=== PATIENT | male | born 1940 | race African-American/Black ===

== ENCOUNTER 2018-08-31 16:42 | Inpatient (IN) | payer OTHER ==
[2018-08-31] VITALS (13 sets, daily range): BP systolic 89–115; BP diastolic 37–53
[~2018-08-31] VITALS: Ht 172.7 cm; Wt 94.6 kg
--- NOTE | ~2018-08-31 | EKG ---
[address] [address] ELECTROCARDIOGRAM REPORT Name: SOLOMON MCKNIGHTKIM Burrell Room #: 236-P ADM IN M.R.#: [id number] Admission: 08/31/18 Attend Phys: Markus Merchant MD Discharge: Date of : 42 Report #: [id number] THIS REPORT FOR: //name// [facility] ED Test Date: 2018-08-31 Test Time: 18:52:57 Pat Name: LISBETH MCKNIGHT Department: Room: [facility] Gender: M Senior Communications Engineer: EMILY : 1940 Requested By: Ivett Macias Order Number: [id number] MD: Aidan Srivastava Measurements Intervals [place] Rate: 100 P: 0 RI: 142 QRS: 73 QRSD: 89 T: 146 QT: 388 QTc: 501 Interpretive Statements Atrial fibrillation Borderline low voltage, extremity leads Nonspecific repol abnormality, diffuse leads No previous ECG available for comparison Electronically Signed On 09-01-2018 10:27:34 REGIONAL SALES TRAINER by Aidan Srivastava [email or web address] <ELECTRONICALLY SIGNED> By: Aidan Srivastava MD 09/01/18 1027 185 [id number] MD MAURICIO Grimaldo
--- NOTE | ~2018-08-31 | P ---
[facility] [place] [address] PROCEDURE REPORT Name: JUAN LUISLISBETH L Room #: 216-P [facility] IN M.R.#: [id number] Admission: 08/31/18 Attend Phys: Peirre Pitts Discharge: Date of : 41 Report #: [id number] THIS REPORT FOR: //name// CC: Pierre Pitts Physician staff Wmpasquale Tishaalexa DATE OF SERVICE: 09/03/2018 PREPROCEDURE DIAGNOSES: Hematoma and necrotic ulceration, left leg. POSTPROCEDURE DIAGNOSES: Hematoma and necrotic ulceration, left leg. PROCEDURE PERFORMED: Surgical full thickness debridement of the ulcerations of the left lower extremity. DESCRIPTION OF PROCEDURE: After appropriate verbal consent obtained from the patient's who was at the bedside with me, the left leg was prepped and draped in the usual sterile manner. Sterile tissue forceps and #10 bladed scalpel were utilized and debridement of necrotic tissue and subcutaneous tissue and skin was debrided from the left lower extremity. The preprocedure measurements were 20 x 7 x 0.1 cm. Postprocedure measurements are 21 x 7 x 0.8 cm. Debridement was carried down through the subcutaneous tissue. No deep structures such as tendon, bone or muscle were debrided. The bleeding was controlled easily with direct pressure. ESTIMATED BLOOD LOSS: Approximately 5 mL. PROCEDURAL PAIN: 2 on a scale of 1-10. POSTPROCEDURAL PAIN: None. COMPLICATIONS: None. The wound was then dressed with Xeroform gauze, ABDs, Kerlix and Hans wrap. The patient tolerated procedure with no complications. <ELECTRONICALLY SIGNED> By: Jim Velasco MD 09/04/18 2109 1752 191 Jim Velasco MD /nt
--- NOTE | ~2018-08-31 | HC ---
[address] [address] CONSULTATION Name: JUAN LUISLISBETH L Room #: 236-P [facility] IN ..#: [id number] Admission: 08/31/18 Attend Phys: Pierre Pitts Discharge: 09/09/18 Date of : 41 Report #: [id number] THIS REPORT FOR: //name// CC: Pierre Gacria MD Physician staff Jimmie Rain DATE OF SERVICE: 09/09/2018 REQUESTING PHYSICIAN: Dr. Garcia. CHIEF COMPLAINT: Multiorgan failure. HISTORY OF PRESENT ILLNESS: The patient is a 78-year-old male, who initially presented on 08/31/2018 from [facility]. He had hypoglycemia at that time. The patient's spouse reported that he had had worsening pain of his left lower extremity. He had had hypoglycemia as well. He had had a previous hematoma, incision and drainage over at [facility] prior to being at [facility]. The patient was admitted and found to have apparent hepatitis on his initial lab work. Additionally, he had development of severe sepsis, unknown origin, possibly cholangitis, subsequently we have not found anything on his MRCP. Additionally, he had been investigated for his left lower extremity wound without apparent origin for that being the origin of infection. He has been continued on antibiotics since that time. Unfortunately, on Sunday, he had a code situation and received resuscitation. Since that time, he has had worsening mental status and severe changes to multiple medical problems including the development of hyperkalemia, hyponatremia, inability to have dialysis for at least a day and inability to tolerate dialysis and requirement of pressors as well as ventilation. The patient has, prior to this, being able to drive himself to dialysis, was very functional. Again, there were concerns for multiple medical problems involved in his care at this time. PAST MEDICAL HISTORY: End-stage renal disease, on chronic dialysis; fatty liver disease; numerous renal masses on CT exam as well as pelvic masses, bladder wall thickening, dementia. He additionally has a right IJ thrombus, left lower extremity wound and history of cardiac arrest. MEDICATIONS: Aspirin, albuterol, Procrit, fentanyl, hydrocortisone. PAST SURGICAL HISTORY: He is status post renal transplant. SOCIAL HISTORY: His spouse, Godwin Mcknight, was present at my interview today as well as a sister. ALLERGIES: IODINE. [facility] [address] [place] [address] CONSULTATION Name: LISBETH MCKNIGHT Room #: 236-P [facility] IN M.R.#: [id number] Admission: 08/31/18 Attend Phys: Pierre Pitts Discharge: 09/09/18 Date of : 41 Report #: [id number] CODE STATUS: Currently considered DNR, confirmed this morning by Dr. Posada. FAMILY HISTORY: Noncontributory. REVIEW OF SYSTEMS: Unobtainable due to present medical condition. PHYSICAL EXAMINATION: VITAL SIGNS: Temperature 34.8, pulse 76, respirations are actually 15 on my exam, blood pressure 91/30 although has been much lower over the course of the day, 95% on ventilation. GENERAL: He is not alert. He is not able to follow commands, has inability to respond at this current time. HEENT: Pupils appeared to be at the very least sluggish if not fixed bilaterally. Again, he had no scleral icterus and no conjunctival injection at this time, although he did apparently on admission. CARDIOVASCULAR: Regular rate and rhythm without murmur. LUNGS: Mechanical ventilatory sounds present. ABDOMEN: Did not grimace to palpation. Diminished bowel sounds noted. LABORATORY DATA: Again, potassium 6.9, sodium 129, creatinine 4.2, AST 1277, ALT 704, albumin 1.5. ASSESSMENT AND PLAN: 1. Status post cardiac arrest. Discussed extensively with regard to his overall poor condition. Discussed the major medical problems including his acute hepatitis including also his acute delirium and they are conducting EEG again today, apparently had one over the weekend with slowed brain wave activity consistent with encephalopathy. The patient has had worsening of his overall delirium. In addition, he has inability to maintain pressure support at this time and is requiring significant pressors to maintain his pressure as well as requiring a Carolyn Hugger for temperature management. Unfortunately, the patient appears to have a very poor prognosis based on overall medical findings today. I did try to explain this to spouse and family members as best as I could. Spent approximately 1 hour 30 minutes on discussing advanced care planning. I did discuss also code status as well. There was apparently some further discussion was to be had with regards to this, but no change to code status is made at this time. I do believe it is appropriate for the patient to have a DNR, considering the additional medical conditions and his recent code. I did discuss the statistics and poor overall likelihood of benefit as well as increased probability that this would cause harm if you were to have this. Discussed the options for palliative care including comfort options including the removal of dialysis and even the possibility of a palliative extubation in the future. Discussed these all in the context of his present medical condition. 2. End-stage renal disease. Discussed in the context as above the possibility [facility] [address] [place] [address] CONSULTATION Name: LISBETH MCKNIGHT Room #: 236-P DIS IN ..#: [id number] Admission: 08/31/18 Attend Phys: Pierre Pitts Discharge: 09/09/18 Date of : 41 Report #: [id number] of stopping dialysis given the potential that he will continue to be intolerant of that at this point in time. 3. Septic shock. Again, overall the patient has inability to regain his pressure support and requiring significant pressors for support. Discussed that this may have led to significant organ damage and multiorgan failure. Discussed what that may entail and the distinct possibilities of recovery is not going to be likely. 4. Acute hepatitis, again unknown origin, followed by GI at this point, may be overlying origin of septic shock, again overall contributing to his current medical condition. I discussed this all with the family today. We will attempt to follow up further, although it does not ____. By: 2301 0915 Sanju Dowd DO /nt
--- NOTE | ~2018-08-31 | EEG ---
[facility] [place] [address] ELECTROENCEPHALOGRAM Name: LISBETH MCKNIGHT Room #: 236-P [facility] IN .R.#: [id number] Admission: 08/31/18 Attend Phys: Pierre Gould Discharge: Date of : 41 Report #: [id number] THIS REPORT FOR: //name// CC: Pierre Pitts MD Physician staff Jimmie Rain HISTORY: The patient is a 78-year-old male with status post code. An EEG is requested for further evaluation. DESCRIPTION: The awake record consists of symmetric kpi-ea-nwoatjqo amplitude poorly formed posterior dominant rhythm 6 Hz. The record demonstrates bilaterally symmetrical moderate amplitude 4-4.5 Hz activity. No focal abnormalities or epileptiform discharges are noted. IMPRESSION: This is an abnormal adult record consistent with moderate diffuse cerebral dysfunction. This may be secondary to encephalopathy and may also be seen with medication effect. No subclinical seizures were noted. <ELECTRONICALLY SIGNED> By: Afsaneh Rodriguez DO 09/07/18 1552 1310 1319 Afsaneh Rodriguez DO /nt
--- NOTE | ~2018-08-31 | EKG ---
[address] [address] ELECTROCARDIOGRAM REPORT Name: LISBETH MCKNIGHT Room #: 236-P ADM IN M.R.#: [id number] Admission: 08/31/18 Attend Phys: Pierre Pitts Discharge: Date of : 41 Report #: [id number] THIS REPORT FOR: //name// [facility] Test Date: 2018-09-06 Test Time: 18:34:22 Pat Name: LISBETH MCKNIGHT Department: Room: 236 Gender: M Bi Architect: Messi MILLER : 1940 Requested By: William Garcia Order Number: [id number] MD: Ervin Kennedy Measurements Intervals [place] Rate: 133 P: CT: QRS: 56 QRSD: 90 T: 174 QT: 280 QTc: 417 Interpretive Statements Atrial fibrillation Ventricular premature complex Low voltage, extremity leads Repolarization abnormality, prob rate related Compared to ECG 08/31/2018 18:52:57 Ventricular premature complex(es) now present Electronically Signed On 09-08-2018 20:26:38 DRIVE IN THEATER ATTENDANT by Ervin Kennedy [email or web address] <ELECTRONICALLY SIGNED> By: Ervin Kennedy MD 09/08/182025 33 33 Ervin Kennedy MD /EPI
--- NOTE | ~2018-08-31 | HC ---
[facility] [address] [place] [address] CONSULTATION Name: JUAN LUISLISBETH L Room #: 236-P [facility] IN ..#: [id number] Admission: 08/31/18 Attend Phys: Pierre Pitts Discharge: Date of : 41 Report #: [id number] THIS REPORT FOR: //name// CC: Pierre Pitts Physician staff Jimmie Rain DATE OF SERVICE: 09/02/2018 CHIEF COMPLAINT: Chronic ulcerations/hematoma left lower extremity. HISTORY OF PRESENT ILLNESS: The patient is a 78-year-old male patient who was admitted here from [facility]. He has had a recent hospitalization at [facility] and was found to have a large hematoma to his left leg. He underwent operative debridement by Dr. Chepe Gale on 07/26/2018. At that time, post-debridement measurements were 52 x 30 cm. He is admitted here with acute mental status changes. He initially had a wound VAC and has been undergoing local care at [facility]. He is unable to provide any information about himself at this time, is quite confused and disoriented. He does complain of some pain in that area. PAST MEDICAL HISTORY: Positive for history of end-stage renal disease, requiring hemodialysis. Dialysis through his center reports he has been undergoing dialysis for the last 35 years. He has a history of a renal transplant. He has had debridement of the left lower extremity hematoma. SOCIAL HISTORY: Unknown. FAMILY HISTORY: Unknown. MEDICATIONS: Include hydrocodone, Nephrocaps, prednisone, Flomax, Zetia, Crestor, Atrovent, Lanoxin, and senna. ALLERGIES: IODINE. PHYSICAL EXAMINATION: VITAL SIGNS: At this time include temperature 36.1, pulse 95, respiratory rate of 36, blood pressure 116/53. GENERAL: This is a chronically ill-appearing male patient who appears to be in mild discomfort. HEENT: Head normocephalic. Nose and throat are clear. NECK: Supple. HEART: Irregular without murmur. LUNGS: Coarse. ABDOMEN: Soft and nontender. EXTREMITIES: Lower extremities demonstrate nonpalpable distal pulses. He has [facility] [address] [place] [address] CONSULTATION Name: JUAN LUISLISBETH L Room #: 236-P [facility] IN ..#: [id number] Admission: 08/31/18 Attend Phys: Pierre Pitts Discharge: Date of : 41 Report #: [id number] large ulceration on the anterior and lateral aspects of his left lower extremity. There is 2-3+ edema. There is some granulation tissue, moderate amount of either dried hematoma or eschar. The area is tender. There is a little bit of bleeding. It is not overtly infected at this time. NEUROLOGIC: The patient is alert. He does have a symmetrical motor exam. He is disoriented, not able to provide any information about himself. LABORATORY DATA: At this time includes sodium 143, potassium is 3.8, CO2 of 29, BUN 10, creatinine 3.1, glucose 185. SGOT is 1437. Total bilirubin 7.2, alkaline phosphatase is 467, SGPT is 441. ProBNP is 25,280. White blood cell count is 14.5 with hemoglobin of 8.5. Albumin is low at 2.1. Lactic acid is 1.8. Troponin I is 2.6. CLINICAL IMPRESSION: 1. Surgical wound following incision and drainage and evacuation of hematoma of the left lower extremity. Etiology is unknown. 2. End-stage renal disease, requiring hemodialysis. 3. Elevated liver function tests. A hepatobiliary scan is pending as is MRCP. Surgery has been consulted. 4. Peripheral arterial disease by clinical exam. 5. Status post renal transplant. 6. History of coronary artery disease. RECOMMENDATIONS: At this point in time, we will recommend arterial Dopplers to evaluate the patient's vascular status. We will also recommend topical Silvadene and Xeroform gauze to the lower extremities. He may require additional debridement, although I do not think that it would be prudent to proceed with a bedside debridement at this juncture. We will continue to follow closely. He will likely need turning and repositioning in bed, nutritional support and PRAFO boots for pressure prophylaxis of the lower extremities. I do appreciate being asked to see him in consultation. <ELECTRONICALLY SIGNED> By: Jim Velasco MD 09/03/18 1300 [id number] Jim Velasco MD /nt
--- NOTE | ~2018-08-31 | HC ---
[facility] [address] [place] [address] CONSULTATION Name: LISBETH MCKNIGHT Ashanti Room #: 236-P [facility] IN .R.#: [id number] Admission: 08/31/18 Attend Phys: Markus Merchant MD Discharge: Date of : 41 Report #: [id number] THIS REPORT FOR: //name// CC: Markus Merchant Physician staff Jimmie Rain REASON FOR CONSULTATION: End-stage renal disease. REASON FOR PRESENTATION: Mental status changes. HISTORY OF PRESENT ILLNESS: The patient is a 78-year-old who is well known to me. He is an end-stage renal disease, maintained on hemodialysis in the [facility] every Sunday, Sunday and Sunday. He recently had significant left lower extremity hematoma and had that debrided in the [facility] after which he required hospitalizations at the [facility] for deteriorating overall condition. Before that, he used to be completely independent and used to be on a nocturnal hemodialysis shift. He is known to have failed kidney transplant in the past. He was being evaluated in the Emergency Room yesterday for acute mental status changes and was found to have hypoglycemia, elevated white blood cell count and elevated liver enzymes. He was admitted for further evaluation and management. I am being consulted to manage his end-stage renal disease. PAST MEDICAL HISTORY: 1. End-stage renal disease, maintained on hemodialysis every Sunday, Sunday and Sunday. 2. Failed renal transplant. 3. Hypertension. 4. Hyperlipidemia. 5. Recent left lower extremity wound, hematoma, evacuation while taking Coumadin. SOCIAL HISTORY: He resides in the [facility]. No drug or alcohol abuse. MEDICATIONS: Currently maintained on Flomax. Digoxin. Ezetimibe. Prednisone. Crestor. REVIEW OF SYSTEMS: This is unobtainable given the patient's mental status. PHYSICAL EXAMINATION: GENERAL: The patient is confused. VITAL SIGNS: Blood pressure is marginal at 95/54, pulse is 97 and temperature is 36.3. He is maintained on by nasal cannula. HEAD AND NECK: No jugular venous distention. CHEST: Bilateral crackles. CARDIOVASCULAR: No rub detected, soft systolic murmur present. [address] [address] CONSULTATION Name: LISBETH MCKNIGHT Ashanti Room #: 236-P ADM IN .R.#: [id number] Admission: 08/31/18 Attend Phys: Markus Merchant MD Discharge: Date of : 42 Report #: [id number] ABDOMEN: Soft and nontender with no hepatosplenomegaly. EXTREMITIES: Lower extremities, dressing applied over the left lower extremity. LABORATORY VALUES: Reviewed. Hemoglobin is 7.9 and white blood cell count 16.1. Chemistry from today revealed sodium of 137, BUN of 13, creatinine of 4.5 and total bilirubin of 6.6. AST of 1199 and ALT of 389. ASSESSMENT, IMPRESSION AND PLAN: 1. Acute mental status changes. 2. Leukocytosis. 3. End-stage renal disease. 4. Hypokalemia. 5. Hypoglycemia. 6. Elevated liver enzyme. 7. Pulmonary edema. 8. We will arrange for the patient to have his dialysis today. His elevated liver enzymes and hypoglycemia is being addressed by the primary team. 9. Leukocytosis. Workup had been initiated. ID consultation is pending. 10. We will try to obtain his medical records from [facility] regarding his hematoma evacuation. <ELECTRONICALLY SIGNED> By: Marcus Harding MD 09/02/18 0628 0916 2252 Marcus Harding MD /nt
--- NOTE | ~2018-08-31 | EKG ---
[address] [address] ELECTROCARDIOGRAM REPORT Name: LISBETH MCKNIGHT Room #: 236-P ADM IN M.R.#: [id number] Admission: 08/31/18 Attend Phys: Pierre Pitts Discharge: Date of : 42 Report #: [id number] THIS REPORT FOR: //name// [facility] Test Date: 2018-09-07 Test Time: 06:24:53 Pat Name: LISBETH MCKNIGHT Department: Room: 236 P Gender: M Disability Examiner: LUKASZ : 1940 Requested By: Tesfaye Garcia Order Number: [id number] MD: Ervin Kennedy Measurements Intervals [place] Rate: 80 P: CT: QRS: 31 QRSD: 88 T: 220 QT: 364 QTc: 420 Interpretive Statements Atrial fibrillation Borderline repolarization abnormality Compared to ECG 08/31/2018 18:52:57 No significant changes Electronically Signed On 09-08-2018 20:31:16 ROLLING UP MACHINE OPERATOR by Ervin Kennedy [email or web address] <ELECTRONICALLY SIGNED> By: Ervin Kennedy MD 09/08/182030 0624 06 Ervin Kennedy MD /KIANA
--- NOTE | ~2018-08-31 | HC ---
[facility] [address] [place] [address] CONSULTATION Name: LISBETH MCKNIGHT Ashanti Room #: 236-P [facility] IN M.R.#: [id number] Admission: 08/31/18 Attend Phys: Pierre Pitts Discharge: Date of : 42 Report #: [id number] THIS REPORT FOR: //name// CC: Markus Merchant Physician staff Jimmie Rain DATE OF SERVICE: 09/01/2018 TYPE OF REPORT: Cardiology consultation. INDICATION: Positive troponin. HISTORY OF PRESENT ILLNESS: This is a 78-year-old gentleman who was transferred from [facility] for unresponsiveness. The patient is minimally conversant, the history is obtained from medical records and interviewing with his . He apparently had debridement of hematoma to his left leg at [facility]. Prior to the debridement, he had been independent and able to drive. He has a history of end-stage renal disease. He is presently in the ICU with hypotension, requiring low dose Levophed for blood pressure support. He was found to have atrial fibrillation and increased heart rate. Troponin level was positive for uvw-AN-uxtmwnujs NE. Review of his laboratory values reveals an elevated liver transaminases. ALLERGIES: To IODINE. PAST MEDICAL HISTORY: Limited. Known to have end-stage renal disease and anemia. Recent debridement of hematoma to the left lower extremity. MEDICATIONS: At home include prednisone, hydrocodone, Zetia, Crestor 20 mg and digoxin. SOCIAL HISTORY: Unknown. REVIEW OF SYSTEMS: Unobtainable. PHYSICAL EXAMINATION: GENERAL: The patient is lethargic, nonverbal. HEENT: Normocephalic and atraumatic. Oral mucosa moist. NECK: Supple. LUNGS: Diminished breath sounds at the bases. CARDIAC: Irregularly regular. S1 and S2 positive. ABDOMEN: Soft and nontender. EXTREMITIES: Left lower extremity has a dressing. No cyanosis. NEUROLOGICAL: Lethargic, not responsive to verbal questions. [facility] [address] [place] [address] CONSULTATION Name: LISBETH MCKNIHGT Ashanti Room #: 236-P [facility] IN [facility]#: [id number] Admission: 08/31/18 Attend Phys: Pierre Pitts Discharge: Date of : 41 Report #: [id number] RADIOLOGICAL DATA: ECG reveals atrial fibrillation at a heart rate of 100 beats per minute, nonspecific ST-segment abnormalities. LABORATORY VALUES: Peak troponin is 4.17. White count 16.1 and hemoglobin 7.9. Creatinine is 4.5. ASSESSMENT AND PLAN: 1. Hypotension/sepsis, currently on pressure support. [place] culture and start antibiotics. 2. Nwf-CH-yadjblvyq myocardial infarction, EKG without any acute ST-segment changes. Given his complicated medical presentation, we would continue with medical therapy at this time. We will need to order an echocardiogram. Unable to add a beta joann in view of his hypotension. 3. End-stage renal disease, prior history of renal transplant. As per Renal. 4. Atrial fibrillation, had been on digoxin previously. We would continue with this at this time. Await echo findings. 5. Increased liver function tests, may be related to shock. 6. Left lower extremity wound, needs wound care. <ELECTRONICALLY SIGNED> By: Aidan Srivastava MD 09/02/18 0807 1152 2221 Aidan Srivastava MD /nt
--- NOTE | ~2018-08-31 | HC ---
[facility] [address] CONSULTATION Name: LISBETH MCKNIGHT [place] Room #: 236-P [facility] M.R.#: [id number] Admission: 08/31/18 Attend Phys: Pierre Pitts Discharge: Date of : 42 Report #: [id number] THIS REPORT FOR: //name// CC: Pierre Pitts Physician staff Jimmie Rain HISTORY OF PRESENT ILLNESS: The patient is a 78-year-old male who was in dialysis yesterday when he coded. The patient is now on the ventilator on a propofol drip. A Neurology consult is requested for further evaluation. PAST MEDICAL HISTORY: Renal failure, on dialysis; hyperlipidemia; coronary artery disease; atrial fibrillation. PAST SURGICAL HISTORY: Dialysis catheter. MEDICATIONS: Propofol drip, aspirin 81 mg daily, digoxin 0.125 mg daily, erythropoietin 20,000 units subQ every Sunday, fentanyl 50 mcg q.4h. p.r.n. pain. The patient has been receiving the medication anywhere from 2-3 times a day, hydrocortisone 100 mg q.8h., piperacillin 3.375 grams daily. ALLERGIES: IODINE. VITAL SIGNS: Temperature 35.9, pulse rate 89, respiratory rate 21 on the ventilator, blood pressure 86/31, bedside pulse oximetry 100% on the ventilator. LABORATORY WORK: White blood cell count 31.9, hemoglobin 8.4, hematocrit 35.8, MCV 93.1, platelet count 97,000. INR 1.8. Chemistry: Sodium 137, potassium 4, chloride 97, carbon dioxide 24, BUN 36, creatinine 2.6, GFR 29, glucose 194, insulin level 0.3. Lactic acid 1.8, calcium 8.1, phosphorus 3.6, magnesium 2.2, iron 100, TIBC 88, iron saturation 114, ferritin 17,630. Total bilirubin 13.3, direct bilirubin 9.3, GGT 589, AST 856, ALT 549, alkaline phosphatase 997, ammonia 21, creatinine kinase 1523, total protein 5.1, albumin 1.7, lipase 97, vitamin B12 4897, folate 14.7. Hepatitis screen negative. NEUROLOGIC: Cranial nerves 2-12 are grossly intact. Motor exam demonstrates symmetrical movement of all four extremities. Coordination and gait cannot be tested. The patient was able to follow simple commands for me. He was able to open and close his eyes. He was able to move the fingers of both hands. IMPRESSION: I have asked the nurse to hold the propofol, so an electroencephalogram can be done. I also asked that the patient be given as little mood altering medication as possible. This includes propofol and fentanyl. It is difficult for the patient to return to his baseline and it is difficult to assess the patient when he is given medications that alter his [address] [address] CONSULTATION Name: LISBETH MCKNIGHT Room #: 236-P [facility] IN .R.#: [id number] Admission: 08/31/18 Attend Phys: Pierre Pitts Discharge: Date of : 42 Report #: [id number] mentation. I do, however, see it is a good sign that he is able to follow simple commands. I am also going to order a CT scan of the head. This can be done when he is more stable. I see he is having some difficulty with hypotension. In addition, an electroencephalogram has been done and I will add the results to my note from today. Thank you for your kind referral of the patient. The Neurology Service will continue to follow him with you. <ELECTRONICALLY SIGNED> By: Afsaneh Rodriguez DO 09/07/18 [id number] Afsaenh Rodriguez DO /nt
[2018-08-31] MEDS ORDERED: NEPHROCAPS SOFT1 CAP PO (18:09)
[2018-08-31] MEDS ORDERED: NORCO 5-325 TA1 EACH PO (18:09)
[2018-08-31] MEDS ORDERED: FLOMAX0.4 MG PO (18:10)
[2018-08-31] MEDS ORDERED: PREDNISONE 5 MG5 M1 PO (18:10)
[2018-08-31] MEDS ORDERED: CRESTOR20 MG PO (18:11)
[2018-08-31] MEDS ORDERED: ZETIA10 MG PO (18:11)
[2018-08-31] MEDS ORDERED: IPRATROPIU0.2 MG/1 M INH (18:12)
[2018-08-31] MEDS ORDERED: SENNA8.6 MG PO (18:12)
[2018-08-31] MEDS ORDERED: DIGOXIN125 MCG PO (18:12)
[2018-08-31 19:09] LABS: HEMATOCRIT 23.2 % (42.0-52.0); HEMOGLOBIN 7.7 gm/dL (14.0-18.0); MCH 31.4 pg (26.0-34.0); MCHC 33.2 g/dL (28.0-37.0)
[2018-08-31 19:11] LABS: ABSOLUTE NEUTROPHILS 12.3 thou/uL (1.4-8.2); BASOPHILS 0.8 % (0.0-2.0); EOSINOPHILS 0.7 % (0.0-3.0); LYMPHOCYTES 13.2 % (24.0-44.0); MCV 94.6 fL (80.0-100.0); MONOCYTES 10.7 % (1.0-8.0); PLATELET COUNT 133 thou/uL (150-400); POLYS 74.6 % (36.0-66.0); RBC 2.46 mil/uL (4.50-6.00); RDW 19.8 % (10.5-14.5); WBC 16.5 thou/uL (4.0-11.0)
[2018-08-31 19:17] LABS: CALCIUM 8.5 mg/dL (8.5-10.1); CREATININE 4.3 mg/dL (0.7-1.3); POTASSIUM 3.2 mmol/L (3.5-5.1)
[2018-08-31 19:28] LABS: TOTAL BILIRUBIN 6.1 mg/dL (<0.1-1.0); TOTAL PROTEIN 5.6 g/dL (6.4-8.2)
[2018-08-31 19:30] LABS: TROPONIN-I 3.89 ng/mL (<0.06)
[2018-08-31 19:38] LABS: ANISOCYTOSIS 2+; OVALOCYTES 1+; TEARDROPS OCCASIONAL
[2018-08-31 19:39] LABS: SCHISTOCYTES RARE
[2018-08-31 19:40] LABS: HYPOCHROMASIA 1+
[2018-09-01] VITALS (102 sets, daily range): BP systolic 50–137; BP diastolic 19–75
[2018-09-01 05:07] LABS: HEMATOCRIT 24.2 % (42.0-52.0); HEMOGLOBIN 7.9 gm/dL (14.0-18.0); MCH 31.3 pg (26.0-34.0); MCHC 32.5 g/dL (28.0-37.0); MCV 96.2 fL (80.0-100.0); RBC 2.52 mil/uL (4.50-6.00); RDW 20.3 % (10.5-14.5); WBC 16.1 thou/uL (4.0-11.0)
[2018-09-01 05:28] LABS: ALBUMIN 2.1 g/dL (3.4-5.0); CREATININE 4.5 mg/dL (0.7-1.3); POTASSIUM 3.6 mmol/L (3.5-5.1); TOTAL BILIRUBIN 6.6 mg/dL (<0.1-1.0); TOTAL PROTEIN 5.5 g/dL (6.4-8.2)
[2018-09-02] VITALS (33 sets, daily range): BP systolic 99–127; BP diastolic 40–82
[2018-09-02 05:41] LABS: HEMATOCRIT 26.5 % (42.0-52.0); HEMOGLOBIN 8.5 gm/dL (14.0-18.0); MCH 30.9 pg (26.0-34.0); MCV 96.8 fL (80.0-100.0); RBC 2.74 mil/uL (4.50-6.00); RDW 20.3 % (10.5-14.5); WBC 14.5 thou/uL (4.0-11.0)
[2018-09-02 05:46] LABS: ALBUMIN 2.1 g/dL (3.4-5.0); CALCIUM 8.1 mg/dL (8.5-10.1); MAGNESIUM 1.9 mg/dL (1.8-2.4); POTASSIUM 3.8 mmol/L (3.5-5.1); TOTAL BILIRUBIN 7.2 mg/dL (<0.1-1.0)
[2018-09-02 05:53] LABS: CREATININE 3.1 mg/dL (0.7-1.3)
[2018-09-02 14:07] LABS: HAV IgM AB (ANTI-HAV IgM) Negative (Negative); HEPATITIS B SURFACE AG Negative (Negative); HEPATITIS C VIRUS AB 0.1 (0.0-0.9)
[2018-09-03] VITALS (46 sets, daily range): BP systolic 49–116; BP diastolic 23–59
[2018-09-03 05:28] LABS: HEMATOCRIT 23.7 % (42.0-52.0); HEMOGLOBIN 7.8 gm/dL (14.0-18.0); MCH 31.3 pg (26.0-34.0); MCHC 33.1 g/dL (28.0-37.0); MCV 94.5 fL (80.0-100.0); RBC 2.5 mil/uL (4.50-6.00); RDW 19.7 % (10.5-14.5)
[2018-09-03 05:36] LABS: ALBUMIN 1.9 g/dL (3.4-5.0); CALCIUM 7.9 mg/dL (8.5-10.1); CREATININE 2.5 mg/dL (0.7-1.3); MAGNESIUM 1.8 mg/dL (1.8-2.4); PHOSPHORUS 2.7 mg/dL (2.5-4.9); POTASSIUM 3.6 mmol/L (3.5-5.1); TOTAL BILIRUBIN 7.1 mg/dL (<0.1-1.0); TOTAL PROTEIN 5.7 g/dL (6.4-8.2)
[2018-09-03 19:08] LABS: HEMATOCRIT 23.3 % (42.0-52.0); HEMOGLOBIN 7.9 gm/dL (14.0-18.0)
[2018-09-03 19:21] LABS: INR 4.4; PROTIME 45.5 Seconds (9.3-11.4)
[2018-09-04] VITALS (63 sets, daily range): BP systolic 73–124; BP diastolic 18–64
[2018-09-04 01:54] LABS: HEMOGLOBIN 6.7 gm/dL (14.0-18.0); MCH 31.4 pg (26.0-34.0); RBC 2.13 mil/uL (4.50-6.00); WBC 9.1 thou/uL (4.0-11.0)
[2018-09-04 01:55] LABS: MCHC 33.4 % (28.0-37.0); RDW 19.3 % (10.5-14.5)
[2018-09-04 02:07] LABS: ALBUMIN 1.7 g/dL (3.4-5.0); CALCIUM 7.8 mg/dL (8.5-10.1); TOTAL BILIRUBIN 7.1 mg/dL (<0.1-1.0); TOTAL PROTEIN 5.2 g/dL (6.4-8.2)
[2018-09-04 02:09] LABS: CREATININE 3.6 mg/dL (0.7-1.3)
[2018-09-04 02:11] LABS: PROTIME 47.4 Seconds (9.3-11.4)
[2018-09-04 02:18] LABS: INR 4.6
[2018-09-04 08:35] LABS: HEMATOCRIT 21.2 % (42.0-52.0); HEMOGLOBIN 7.1 gm/dL (14.0-18.0)
[2018-09-04 08:47] LABS: PROTIME 32.1 Seconds (9.3-11.4)
[2018-09-04 09:05] LABS: INR 3.1
[2018-09-04 10:59] LABS: % SATURATION 114 % (20-39); IRON 100 ug/dL (65-175); TIBC 88 ug/dL (250-450)
[2018-09-04 12:00] LABS: FOLIC ACID 14.7 ng/mL (8.6-58.9)
[2018-09-05] VITALS (7 sets, daily range): BP systolic 104–115; BP diastolic 29–97
[2018-09-05 04:06] LABS: APTT 48.2 Seconds (24.5-32.8); INR 3.1; PROTIME 32.6 Seconds (9.3-11.4)
[2018-09-05 04:07] LABS: HEMOGLOBIN 6.5 gm/dL (14.0-18.0)
[2018-09-05 04:09] LABS: MCHC 33.8 g/dL (28.0-37.0); MCV 91.5 fL (80.0-100.0); PLATELET COUNT 85 thou/uL (150-400); RBC 2.09 mil/uL (4.50-6.00); RDW 19.8 % (10.5-14.5); WBC 9.8 thou/uL (4.0-11.0)
[2018-09-05 04:14] LABS: ALBUMIN 1.8 g/dL (3.4-5.0); CALCIUM 8.3 mg/dL (8.5-10.1); CREATININE 2.8 mg/dL (0.7-1.3); PHOSPHORUS 2.3 mg/dL (2.5-4.9); TOTAL BILIRUBIN 8.4 mg/dL (<0.1-1.0)
[2018-09-05 04:20] LABS: HEMATOCRIT 19.1 % (42.0-52.0)
[2018-09-05 04:48] LABS: TOTAL PROTEIN 5.3 g/dL (6.4-8.2)
[2018-09-05 04:55] LABS: ABSOLUTE NEUTROPHILS 8.5 thou/uL (1.4-8.2); LARGE PLATELETS FEW
[2018-09-05 04:56] LABS: ANISOCYTOSIS 2+; MICROCYTES 2+; PLATELET ESTIMATE DECREASED; POLYCHROMASIA 1+
[2018-09-05 04:58] LABS: HYPOCHROMASIA 3+; SCHISTOCYTES FEW
[2018-09-05 11:18] LABS: INR 2.8; PROTIME 28.8 Seconds (9.3-11.4)
[2018-09-06] VITALS (17 sets, daily range): BP systolic 74–145; BP diastolic 36–96
[2018-09-06 04:48] LABS: INR 2.3; PROTIME 23.4 Seconds (9.3-11.4)
[2018-09-06 04:50] LABS: HEMATOCRIT 23.4 % (42.0-52.0); HEMOGLOBIN 7.9 gm/dL (14.0-18.0); MCH 30.3 pg (26.0-34.0); MCV 89.4 fL (80.0-100.0); RBC 2.61 mil/uL (4.50-6.00); RDW 19.8 % (10.5-14.5); WBC 12.7 thou/uL (4.0-11.0)
[2018-09-06 04:51] LABS: ALBUMIN 1.8 g/dL (3.4-5.0); CALCIUM 8.6 mg/dL (8.5-10.1); CREATININE 3.7 mg/dL (0.7-1.3); MAGNESIUM 2.2 mg/dL (1.8-2.4); PHOSPHORUS 2.6 mg/dL (2.5-4.9); POTASSIUM 4.3 mmol/L (3.5-5.1); TOTAL BILIRUBIN 10.9 mg/dL (<0.1-1.0)
[2018-09-06 05:11] LABS: TOTAL PROTEIN 5.4 g/dL (6.4-8.2)
[2018-09-06 19:07] LABS: BE(vivo) -2.9 mmol/L (-2 to +3); HCO3 22.3 mmol/L (22.0-26.0); PCO2 40.2 mmHg (35.0-45.0); PO2 180.8 mmHg (80.0-100.0); pH 7.362 (7.360-7.450); sO2 99.2 % (92.0-98.0)
[2018-09-06 19:29] LABS: HEMOGLOBIN 8.6 gm/dL (14.0-18.0); MCH 30.9 pg (26.0-34.0); MCHC 33.2 g/dL (28.0-37.0); MCV 93.1 fL (80.0-100.0); PLATELET COUNT 103 thou/uL (150-400); RDW 20.6 % (10.5-14.5); WBC 26.6 thou/uL (4.0-11.0)
[2018-09-06 19:48] LABS: INR 1.9; PROTIME 19.6 Seconds (9.3-11.4)
[2018-09-06 19:59] LABS: ABSOLUTE NEUTROPHILS 20.7 thou/uL (1.4-8.2); NUCLEATED RBCS 3 /100WBC
[2018-09-06 20:00] LABS: ALBUMIN 1.7 g/dL (3.4-5.0); ANISOCYTOSIS 2+; CALCIUM 8.3 mg/dL (8.5-10.1); POLYCHROMASIA OCCASIONAL; POTASSIUM 3.9 mmol/L (3.5-5.1); TOTAL BILIRUBIN 11.4 mg/dL (<0.1-1.0); TOTAL PROTEIN 5.2 g/dL (6.4-8.2); TROPONIN-I 0.47 ng/mL (<0.06)
[2018-09-06 20:01] LABS: CREATININE 2.1 mg/dL (0.7-1.3); HYPOCHROMASIA 1+; SCHISTOCYTES OCCASIONAL
[2018-09-06 22:33] LABS: BE(vivo) -2.6 mmol/L (-2 to +3); HCO3 20.9 mmol/L (22.0-26.0); PCO2 31.1 mmHg (35.0-45.0); PO2 182.9 mmHg (80.0-100.0); pH 7.445 (7.360-7.450); sO2 99.3 % (92.0-98.0)
[2018-09-07] VITALS (46 sets, daily range): BP systolic 82–116; BP diastolic 31–94
[2018-09-07 05:19] LABS: HCO3 26.2 mmol/L (22.0-26.0); PCO2 39.3 mmHg (35.0-45.0); PO2 199.9 mmHg (80.0-100.0); pH 7.442 (7.360-7.450); sO2 99.4 % (92.0-98.0)
[2018-09-07 05:43] LABS: HEMOGLOBIN 8.4 gm/dL (14.0-18.0)
[2018-09-07 05:46] LABS: HEMATOCRIT 25.8 % (42.0-52.0); MCH 30.5 pg (26.0-34.0); MCHC 32.7 g/dL (28.0-37.0); MCV 93.1 fL (80.0-100.0); RBC 2.77 mil/uL (4.50-6.00); RDW 20.1 % (10.5-14.5); WBC 31.9 thou/uL (4.0-11.0)
[2018-09-07 06:08] LABS: ALBUMIN 1.7 g/dL (3.4-5.0); CALCIUM 8.1 mg/dL (8.5-10.1); CREATININE 2.6 mg/dL (0.7-1.3); TOTAL BILIRUBIN 13.3 mg/dL (<0.1-1.0); TOTAL PROTEIN 5.1 g/dL (6.4-8.2)
[2018-09-07 08:13] LABS: INR 1.8; PROTIME 18.4 Seconds (9.3-11.4)
[2018-09-07 08:49] LABS: MAGNESIUM 2.2 mg/dL (1.8-2.4); PHOSPHORUS 3.6 mg/dL (2.5-4.9)
[2018-09-08] VITALS (73 sets, daily range): BP systolic 70–124; BP diastolic 34–52
[2018-09-08 05:34] LABS: HEMATOCRIT 27.9 % (42.0-52.0); HEMOGLOBIN 8.8 gm/dL (14.0-18.0); MCH 29.6 pg (26.0-34.0); MCHC 31.4 g/dL (28.0-37.0); MCV 94.4 fL (80.0-100.0); RBC 2.96 mil/uL (4.50-6.00); RDW 20.3 % (10.5-14.5)
[2018-09-08 05:36] LABS: WBC 44.5 thou/uL (4.0-11.0)
[2018-09-08 05:39] LABS: INR 1.7; PROTIME 18.1 Seconds (9.3-11.4)
[2018-09-08 06:33] LABS: ALBUMIN 1.8 g/dL (3.4-5.0); CALCIUM 8.2 mg/dL (8.5-10.1); CREATININE 3.4 mg/dL (0.7-1.3); MAGNESIUM 2.3 mg/dL (1.8-2.4); PHOSPHORUS 5.2 mg/dL (2.5-4.9); TOTAL BILIRUBIN 17.3 mg/dL (<0.1-1.0); TOTAL PROTEIN 5.3 g/dL (6.4-8.2)
[2018-09-09] VITALS (43 sets, daily range): BP systolic 47–111; BP diastolic 24–46
[2018-09-09 04:54] LABS: ALBUMIN 1.5 g/dL (3.4-5.0); CALCIUM 7.9 mg/dL (8.5-10.1); CREATININE 4.2 mg/dL (0.7-1.3); PHOSPHORUS 10.6 mg/dL (2.5-4.9); TOTAL BILIRUBIN 16.1 mg/dL (<0.1-1.0); TOTAL PROTEIN 4.7 g/dL (6.4-8.2)
[2018-09-09 05:00] LABS: POTASSIUM 6.9 mmol/L (3.5-5.1)
[2018-09-09 05:09] LABS: HEMATOCRIT 28.8 % (42.0-52.0); HEMOGLOBIN 8.2 gm/dL (14.0-18.0); MCH 30.8 pg (26.0-34.0); MCHC 28.6 g/dL (28.0-37.0); PLATELET COUNT 109 thou/uL (150-400); RBC 2.68 mil/uL (4.50-6.00)
[2018-09-09 05:10] LABS: MCV 107.4 fL (80.0-100.0)
[2018-09-09 05:11] LABS: WBC 48.4 thou/uL (4.0-11.0)
[2018-09-09 05:13] LABS: ABSOLUTE NEUTROPHILS 43.1 thou/uL (1.4-8.2); ANISOCYTOSIS 3+; NUCLEATED RBCS 5 /100WBC
[2018-09-09 05:14] LABS: MACROCYTES 2+; OVALOCYTES FEW; POLYCHROMASIA 2+; SCHISTOCYTES FEW
[2018-09-10 15:11] LABS: CERULOPLASMIN 12.4 mg/dL (16.0-31.0)
== END 2018-09-09 20:35 | DRG 853 ==
LOC: ER 16:42 → EROBS 20:11 → ICU 20:11 → 2N 09-04 18:47 → ICU 09-06 19:29
PROVIDERS: Hospitalist; Internal Medicine Gastroenterology; Internal Medicine Nephrology; Nurse Practitioner; Nurse Practitioner Acute Care; Nurse Practitioner Family; Pediatrics; Specialist
PROC: 02HV33Z Insertion of Infusion Device into Superior Vena Cava, Percutaneous Approach (ICD-10-PCS; principal; 2018-09-03)
PROC: B5181ZA Fluoroscopy of Superior Vena Cava using Low Osmolar Contrast, Guidance (ICD-10-PCS; principal; 2018-09-03)
PROC: 0JBP0ZZ Excision of Left Lower Leg Subcutaneous Tissue and Fascia, Open Approach (ICD-10-PCS; principal; 2018-09-03)
PROC: B548ZZA Ultrasonography of Superior Vena Cava, Guidance (ICD-10-PCS; principal; 2018-09-03)
PROC: 30233L1 Transfusion of Nonautologous Fresh Plasma into Peripheral Vein, Percutaneous Approach (ICD-10-PCS; 2018-09-04)
PROC: 30233K1 Transfusion of Nonautologous Frozen Plasma into Peripheral Vein, Percutaneous Approach (ICD-10-PCS; 2018-09-04)
PROC: 30233N1 Transfusion of Nonautologous Red Blood Cells into Peripheral Vein, Percutaneous Approach (ICD-10-PCS; 2018-09-04)
PROC: 5A12012 Performance of Cardiac Output, Single, Manual (ICD-10-PCS; 2018-09-06)
PROC: 5A1945Z Respiratory Ventilation, 24-96 Consecutive Hours (ICD-10-PCS; 2018-09-06)
PROC: 0BH17EZ Insertion of Endotracheal Airway into Trachea, Via Natural or Artificial Opening (ICD-10-PCS; 2018-09-06)
DX: A41.9 Sepsis, unspecified organism (principal); N18.6 End stage renal disease; I21.4 Non-ST elevation (NSTEMI) myocardial infarction; R65.21 Severe sepsis with septic shock; G92 Toxic encephalopathy; J96.01 Acute respiratory failure with hypoxia; J18.9 Pneumonia, unspecified organism; B17.9 Acute viral hepatitis, unspecified; L76.32 Postprocedural hematoma of skin and subcutaneous tissue following other procedure; I13.2 Hypertensive heart and chronic kidney disease with heart failure and with stage 5 chronic kidney disease, or end stage renal disease; N25.81 Secondary hyperparathyroidism of renal origin; K83.09 Other cholangitis; I82.C11 Acute embolism and thrombosis of right internal jugular vein; G93.1 Anoxic brain damage, not elsewhere classified; I46.9 Cardiac arrest, cause unspecified; Z66 Do not resuscitate; F03.90 Unspecified dementia, unspecified severity, without behavioral disturbance, psychotic disturbance, mood disturbance, and anxiety; D64.9 Anemia, unspecified; E87.6 Hypokalemia; K81.9 Cholecystitis, unspecified; I48.2 Chronic atrial fibrillation; I50.9 Heart failure, unspecified; K21.9 Gastro-esophageal reflux disease without esophagitis; K76.0 Fatty (change of) liver, not elsewhere classified; D69.6 Thrombocytopenia, unspecified; N40.0 Benign prostatic hyperplasia without lower urinary tract symptoms; E80.6 Other disorders of bilirubin metabolism; E78.5 Hyperlipidemia, unspecified; E16.2 Hypoglycemia, unspecified; I73.9 Peripheral vascular disease, unspecified; I25.10 Atherosclerotic heart disease of native coronary artery without angina pectoris; Y83.8 Other surgical procedures as the cause of abnormal reaction of the patient, or of later complication, without mention of misadventure at the time of the procedure; Y92.89 Other specified places as the place of occurrence of the external cause; Z86.74 Personal history of sudden cardiac arrest; Z99.2 Dependence on renal dialysis; Z79.52 Long term (current) use of systemic steroids; Z79.899 Other long term (current) drug therapy; Z91.041 Radiographic dye allergy status; Z91.15 Patient's noncompliance with renal dialysis
CPT/HCPCS: 10078; 10081; 10203; 10797; 32100